=== PATIENT | male | born 1940 | race Caucasian/White ===

== ENCOUNTER → 2016-11-11 | Day surgery (SDC) | payer MEDICARE, OTHER ==
[~2016-11-11] VITALS: Ht 176.5 cm; Wt 81.7 kg
[~2016-11-11] MED LIST: COQ-1030 MG PO; COZAAR50 MG PO; CPAP INH; ESTER-C 500 MG1 EACH PO; FISH OIL 1,2001 EACH PO; GARLIC1 EAC1 PO; MAGNESIUM400 M1 PO; METFORMIN HCL1000 M1 PO; OCUVITE WITH L1 EACH PO; PRAVACHOL40 MG PO; TURMERIC500 MG PO; VITAMIN B125000 MCG PO; VITAMIN D31000 UNI1 PO
== END | disposition disaster alternative care site (69) ==
LOC: GPOC 11-05 11:00 → GEND 08:53 → GPOC 09:00
PROC: 0DB98ZX Excision of Duodenum, Via Natural or Artificial Opening Endoscopic, Diagnostic (ICD-10-PCS; principal; 2016-11-11)
PROC: 0DB68ZX Excision of Stomach, Via Natural or Artificial Opening Endoscopic, Diagnostic (ICD-10-PCS; 2016-11-11)
PROC: 0DB58ZX Excision of Esophagus, Via Natural or Artificial Opening Endoscopic, Diagnostic (ICD-10-PCS; 2016-11-11)
DX: K22.70 Barrett's esophagus without dysplasia (principal); K29.70 Gastritis, unspecified, without bleeding; B96.81 Helicobacter pylori [H. pylori] as the cause of diseases classified elsewhere; K20.9 Esophagitis, unspecified; K44.9 Diaphragmatic hernia without obstruction or gangrene; K29.80 Duodenitis without bleeding; R13.12 Dysphagia, oropharyngeal phase; I10 Essential (primary) hypertension; E78.5 Hyperlipidemia, unspecified; I25.10 Atherosclerotic heart disease of native coronary artery without angina pectoris; E11.9 Type 2 diabetes mellitus without complications; Z79.899 Other long term (current) drug therapy; Z98.890 Other specified postprocedural states; Z87.891 Personal history of nicotine dependence; Z90.49 Acquired absence of other specified parts of digestive tract
CPT/HCPCS: J2001; J7030